=== PATIENT | male | born 1970 | race Caucasian/White ===

== ENCOUNTER 2023-06-26 13:50 | Outpatient (CLI) | payer OTHER | END 2023-06-26 13:51 | disposition home or self-care (01) | LOC: CSHCP 13:50 | PROVIDERS: ATTEND Internal Medicine Critical Care Medicine | DX: J84.9 Interstitial pulmonary disease, unspecified (principal); R94.2 Abnormal results of pulmonary function studies; J43.9 Emphysema, unspecified; R91.8 Other nonspecific abnormal finding of lung field; I31.9 Disease of pericardium, unspecified; R59.0 Localized enlarged lymph nodes | CPT/HCPCS: 71250; 94060; 94726; 94729; 94760 ==

== ENCOUNTER 2024-03-01 08:08 | Outpatient (CLI) | payer OTHER ==
[2024-03-01] MEDS ORDERED: Iopamidol 370 76% 100 ML VIAL ONE (10:53)
== END 2024-03-01 08:09 | disposition home or self-care (01) ==
LOC: CSHCT 08:08
PROVIDERS: ATTEND Student in an Organized Health Care Education/Training Program
DX: I71.43 Infrarenal abdominal aortic aneurysm, without rupture (principal); Z98.890 Other specified postprocedural states; I70.0 Atherosclerosis of aorta; I77.1 Stricture of artery
CPT/HCPCS: 74174; Q9967